=== PATIENT | male | born 1985 | race Caucasian/White ===

== ENCOUNTER 2018-04-26 22:01 | Emergency (ER) | payer SELFPAY ==
[2018-04-26 22:11] VITALS: BMI 32.8
--- NOTE | 2018-04-26 22:25 | PDOC ---
History of Present Illness <Paolo Caballero - Last Filed: 04/26/18 22:34> - General History Source: Patient Exam Limitations: No Limitations - History of Present Illness Initial Comments: 04/26/18 22:43 The patient is a 33 year old male with no significant PMH presenting with throat pain since 10AM this morning and fever tonight. Patient is complaining of difficulty swallowing. Patient denies any difficulty breathing. Patient reports taking Tylenol this morning with no relief. Patient states he had strep pharyngitis in the past. Patient endorses sick contact. The patient denies chest pain, shortness of breath, headache and dizziness. Denies cough, runny nose, chills, nausea, vomit, diarrhea and constipation. Denies dysuria, frequency, urgency and hematuria. Allergies: NKA Past surgical history: None reported. Social history: No reported alcohol, drug, or cigarette use. <Janette Andersen - Last Filed: 04/26/18 22:48> - General Chief Complaint: Sore Throat Stated Complaint: FEVER Time Seen by Provider: 04/26/18 22:23 Past History - Past Medical History COPD: No Other medical history: Pt denies - Suicide/Smoking/Psychosocial Hx Smoking History: Former smoker Have you smoked in the past 12 months: No If you are a former smoker, when did you quit?: 1 yr Information on smoking cessation initiated: No Hx Alcohol Use: No Drug/Substance Use Hx: No Substance Use Type: None <Paolo Caballero - Last Filed: 04/26/18 22:34> <Janette Andersen - Last Filed: 04/26/18 22:48> - Past Medical History Allergies/Adverse Reactions: Allergies Allergy/AdvReac Type Severity Reaction Status Date / Time No Known Allergies Allergy Verified 04/26/18 22:08 Home Medications: Ambulatory Orders Amoxicillin - [Amoxicillin 500mg Capsule -] 1,000 mg PO DAILY #20 capsule Ibuprofen 800 mg PO TID PRN #20 tablet 04/26/18 Review of Systems - Review of Systems Constitutional: Yes: Chills, Fever HEENTM: Yes: Throat Pain, Throat Swelling. No: Nose Congestion Respiratory: No: Cough, Shortness of Breath ABD/GI: No: Nausea, Vomiting Integumentary: No: Rash Neurological: Yes: Headache (with fever) All Other Systems: Reviewed and Negative <HarleyNghia cooperPaolo - Last Filed: 04/26/18 22:34> *Physical Exam - Vital Signs Last Vital Signs Temp Pulse Resp BP Pulse Ox 100.9 F H 98 H 20 143/75 97 04/26/18 22:09 04/26/18 22:09 04/26/18 22:09 04/26/18 22:09 04/26/18 22:09 <Paolo Caballero - Last Filed: 04/26/18 22:34> - Vital Signs Last Vital Signs Temp Pulse Resp BP Pulse Ox 100.9 F H 98 H 20 143/75 97 04/26/18 22:09 04/26/18 22:09 04/26/18 22:09 04/26/18 22:09 04/26/18 22:09 - Physical Exam Comments: 04/26/18 22:42 GENERAL: The patient is awake, alert, and fully oriented, in no acute distress. HEAD: Normal with no signs of trauma. EYES: Pupils equal, round and reactive to light, extraocular movements intact, sclera anicteric, conjunctiva clear with no pallor. ENT: Ears normal, nares patent. Moist mucous membranes. (+) Isolated left tonsil with friable tissue. Left tonsil with dry blood, erythema, swelling, and exudates. Airway is patent without stridor. Uvula is midline. Speaking in full sentences. NECK: Normal range of motion, supple without lymphadenopathy, JVD, or masses. LUNGS: Breath sounds equal, clear to auscultation bilaterally. No wheeze/ crackles. HEART: Regular rate and rhythm, normal S1 and S2 without murmur or rub. ABDOMEN: Soft/nontender/nondistended. BS wnl. No guarding or rebound. No palpable masses. No hepatosplenomegaly. EXTREMITIES: Normal range of motion, no edema. No clubbing or cyanosis. No cords, erythema, or tenderness. NEUROLOGICAL: Cranial nerves II through XII grossly intact. Normal speech, normal gait. PSYCH: Normal mood, normal affect. SKIN: Warm, Dry, normal turgor, no rashes or lesions noted. <Janette Andersen - Last Filed: 04/26/18 22:48> Medical Decision Making - Medical Decision Making 04/26/18 22:35 A portion of this note was documented by scribe services under my direction. I have reviewed the details of the note, within reason, and agree with the documentation with the following case summary and management plan written by me. Healthy 33-year-old male presents with 1 day of progressive throat pain and now fevers tonight. Positive odynophagia, otherwise tolerating secretions and no difficulty breathing. Has had strep pharyngitis in the past, positive sick contact as his has similar symptoms. Afebrile, otherwise well-appearing and hemodynamically stable Left tonsillar swelling and erythema with friable tissue and dry blood, uvula is otherwise midline and Airway is patent without stridor. + submandibular LAD no rash, neck supple 33y/o M with tonsillitis/pharyngitis, clinically consistent with strep. cx sent but will treat empirically with amoxicillin ibuprofen for pain/fever mom at bedside, understands return criteria. <Paolo Caballero - Last Filed: 04/26/18 22:34> - Medical Decision Making <Janette Andersen - Last Filed: 04/26/18 22:48> *DC/Admit/Observation/Transfer <Paolo Caballero - Last Filed: 04/26/18 22:34> - Attestations Scribe Attestion: 04/26/18 22:43 Documentation prepared by Janette Andersen, acting as medical delivery driver for Paolo Caballero MD. <Janette Andersen - Last Filed: 04/26/18 22:48> Diagnosis at time of Disposition: Tonsillitis - Discharge Dispostion Condition at time of disposition: Stable - Prescriptions Prescriptions: Amoxicillin - [Amoxicillin 500mg Capsule -] 1,000 mg PO DAILY #20 capsule Ibuprofen 800 mg PO TID PRN #20 tablet PRN Reason: Pain - Referrals Referrals: Tony Edwards MD [Staff Physician] - - Patient Instructions Printed Discharge Instructions: DI for Pharyngitis/Tonsillopharyngitis -- Adult Additional Instructions: Activity as tolerated. Stay hydrated. Tylenol 1000 mg every 8 hours and/or ibuprofen 800 mg every 8 hours as needed for fever/pain. You have a tonsil/throat infection. Take Amoxicillin 1000mg daily for 10 days as prescribed. You should follow up with your primary doctor or an ENT as soon as possible regarding today's emergency department visit. Return to the emergency department for any new or concerning symptoms, particularly persistent or worsening pain or swelling, difficulty swallowing or breathing, persistent fevers or chills, persistent bleeding.
[2018-04-26] MEDS ORDERED: IBUPROFEN 400 MG TABLET (FP) PO ONE ×2 (22:34→23:20)
[2018-04-26] MEDS ORDERED: AMOXICILLIN 500 MG CAPSULE (FP) PO ONE (22:34)
[2018-04-26] MEDS ORDERED: AMOXICILLIN 500 MG CAPSULE (FP) ONE (23:20)
[2018-04-27 00:52] VITALS: BP 139/91; PULSE 90; TEMP 98.7
== END 2018-04-27 00:30 | disposition home or self-care (01) ==
LOC: JER 22:01
DX: J03.90 Acute tonsillitis, unspecified (principal)
CPT/HCPCS: 87070; 87430; 99281-25